=== PATIENT | male | born 1970 | race African-American/Black ===

== ENCOUNTER → 2020-10-23 | Outpatient (CLI) | payer SELFPAY ==
[~2020-10-23] MED LIST: COR6 MT; LOSA1TAB34 PO; METO-411 MT; OMEG100036 PO; OMEP20TA2 MT
== END | disposition home or self-care (01) ==
LOC: LAB 12:18
PROVIDERS: ATTEND Internal Medicine Cardiovascular Disease
DX: Z01.812 Encounter for preprocedural laboratory examination (principal); Z20.828 Contact with and (suspected) exposure to other viral communicable diseases
CPT/HCPCS: 87426

== ENCOUNTER → 2020-10-25 | Day surgery (SDC) | payer MEDICAID ==
[~2020-10-25] VITALS: Ht 182.9 cm; Wt 83.9 kg
[~2020-10-25] MED LIST changes: +ACETAMINOPHEN 325MG TABLET PO PRN; +FENTANYL CITRATE/PF 50MCG/ML 2ML VIAL ONE; +IOHEXOL-300 100 ML BOTTLE ONE; +LIDOCAINE HCL 1% 20ML VIAL (Pyxis) INJ ONE; +MIDAZOLAM HCL 2 MG/2 ML VIAL ONE
[2020-10-25 11:27] LABS: HEMATOCRIT 41.5 % (42.0-52.0); HEMOGLOBIN 14.4 g/dL (14.0-18.0); MEAN CORPUSCULAR HEMOGLOBIN 33.8 pg (28.0-32.0); MEAN CORPUSCULAR VOLUME 97.2 fL (80.0-94.0); PLATELET 167 x1000/uL (130-400); RED BLOOD CELL COUNT 4.27 mill/uL (4.7-6.1); RED CELL DISTRIBUTION WIDTH 13.9 % (11.6-14.6)
[2020-10-25 11:35] LABS: CHLORIDE 99 mEq/L (98-107)
== END | disposition home or self-care (01) ==
LOC: CCL 09:46
PROVIDERS: ATTEND Internal Medicine Cardiovascular Disease
DX: R07.9 Chest pain, unspecified (principal); I10 Essential (primary) hypertension; E78.5 Hyperlipidemia, unspecified; Z79.899 Other long term (current) drug therapy; Z98.890 Other specified postprocedural states
CPT/HCPCS: 36415; 80048; 85027; 93005; 93458; C1769; C1887; C1893; J1644; J2250; J3010; J3490; Q9967